=== PATIENT | female | born 1960 | race Two or more races ===

== ENCOUNTER 2018-09-01 22:16 | Inpatient (IN) | payer MEDICARE, OTHER ==
[~2018-09-01] VITALS: Ht 167.6 cm; Wt 64.0 kg
--- NOTE | 2018-09-01 22:30 | NUR ---
ADMITTED A 58 Y/O FROM [facility] ER, ON 5150 HOLD GD, BASED ON HOLD, PATIENT HOUSE FILLED WITH ROTTEN FOOD, PATIENT REFUSED TO EAT AND UNABLE TO FORMULATE PLAN FOR SELF CARE. PATIENT ADMITTING DX. DEPRESSION. UPON FACE TO FACE EVALUATION, PATIENT APPEARED ALERT AND ORIENTED X2-3, CALM, COOPERATIVE, FLAT AFFECT, DENIES SI/HI/AH/VH, PATIENT RESPONDING TO INTERNAL STIMULI, PATIENT HAS NO SOB, NO ACUTE DISTRESS, BREATHING EVEN AND UNLABORED, NO S/S OF PAIN AND DISCOMFORT, HEAD TO TOE ASSESSMENT DONE, SKIN INTACT, PATIENT SIGNED THE PAPER WORKS, NOTIFIED DR. AGRAWAL OF THE ADMISSION AND MANAGER POST MARYA TO RECONCILE THE MEDICATION. ALL NEEDS ATTENDED AND MET, WILL CONTINUE TO MONITOR [id number] FOR SAFETY
[2018-09-01] MEDS ORDERED: ACETAMINOPHEN 325 MG TABLET PO PRN (23:00)
[2018-09-01] MEDS ORDERED: MAG HYDROX/AL HYDROX/SIMETH 30 ML UDC PO PRN (23:00)
[2018-09-01] MEDS ORDERED: MAGNESIUM HYDROXIDE 30 ML UDC PO PRN (23:00)
[2018-09-01 23:39] VITALS: BP 125/87
[2018-09-02] MEDS: CEPHALEXIN MONOHYDRATE 500 MG CAPSULE PO SCH ×3 (00:44→20:52)
[2018-09-02] MEDS: TEMAZEPAM 15 MG CAPSULE PO PRN (00:45)
[2018-09-02 07:27] LABS: BASOPHILS % (AUTO) 0.3 % (0.0-2.0); EOSINOPHILS % (AUTO) 0.4 % (0.0-6.0); HEMATOCRIT 41 % (33-45); HEMOGLOBIN 13.7 g/dL (11.5-14.8); LYMPHOCYTES # (AUTO) 1.8 /CMM (0.8-4.8); LYMPHOCYTES % (AUTO) 26.6 % (20.0-44.0); MEAN CORPUSCULAR HGB CONC 33 g/dl (31.0-36.0); MEAN CORPUSCULAR VOLUME 90 fL (82-100); MONOCYTES # (AUTO) 0.6 /CMM (0.1-1.30); NEUTROPHILS # (AUTO) 4.4 /CMM (1.8-8.9); NEUTROPHILS % (AUTO) 63.7 % (43.0-81.0); PLATELET COUNT (AUTO) 177 /CMM (150-450); RED BLOOD CELL COUNT(AUTO) 4.59 MIL/uL (4.0-5.2); WHITE BLOOD COUNT (AUTO) 6.9 K/uL (4.3-11.0)
[2018-09-02 07:37] LABS: ALBUMIN 4.4 g/dL (3.4-5.0); BILIRUBIN,TOTAL 0.5 mg/dL (0.2-1.0); CALCIUM, SERUM 9.8 mg/dL (8.5-10.1); CREATININE 0.8 mg/dL (0.6-1.3); POTASSIUM 4.1 mmol/L (3.5-5.1)
[2018-09-02 08:00] VITALS: BP 142/87
[2018-09-02] MEDS: NICOTINE PATCH (14MG) 14 MG PATCH.TD24 TD SCH (09:04)
[2018-09-02] MEDS: risperiDONE 1 MG TABLET PO SCH (15:22)
[2018-09-02 16:00] VITALS: BP 148/99
[2018-09-02 20:00] VITALS: BP 141/99
[2018-09-03] MEDS: risperiDONE 1 MG TABLET PO SCH ×2 (03:22→20:37)
--- NOTE | 2018-09-03 06:31 | NUR ---
SODA FOUNTAIN OPERATOR CLOSING NOTES PT REMAINS SLEEP BUT AROUSE TO TOUCH, AND RESPONSIVE TO INTERNAL STIMULI .NO SIGNS OF ANY AGITATION NOTED, STABLE CHAIM THE NIGHT AND PT COMPLIANCE ON HER MEDICATION. ALL DUE MEDS GIVEN AND ALL NEEDS MET. KEPT HER WARM AND COMFORTABLE AT ALL TIMES. WILL ENDORSE TO AM NURSE FOR CONTINUITY OF CARE.
[2018-09-03 08:00] VITALS: BP 115/69
[2018-09-03] MEDS: CEPHALEXIN MONOHYDRATE 500 MG CAPSULE PO SCH ×2 (08:35→20:53)
[2018-09-03] MEDS: NICOTINE PATCH (14MG) 14 MG PATCH.TD24 TD SCH (08:36)
[2018-09-03] MEDS ORDERED: risperiDONE 1 MG TABLET PO SCH (13:31)
[2018-09-03 16:00] VITALS: BP 104/59
[2018-09-03 20:15] VITALS: BP 108/65
[2018-09-03] MEDS ORDERED: CEPHALEXIN MONOHYDRATE 500 MG CAPSULE PO ONE (20:51)
[2018-09-04 08:00] VITALS: BP 121/70
--- NOTE | 2018-09-04 09:34 | NUR ---
SW contacted the Crisis Team at [facility] Address: [address] [place] [address] and received pts Pathpoint case loader operatorland development manager and psychiatrist information.
[2018-09-04] MEDS: NICOTINE PATCH (14MG) 14 MG PATCH.TD24 TD SCH (09:37)
[2018-09-04] MEDS: CEPHALEXIN MONOHYDRATE 500 MG CAPSULE PO SCH ×2 (09:37→22:03)
[2018-09-04] MEDS: risperiDONE 1 MG TABLET PO SCH ×2 (09:38→22:04)
--- NOTE | 2018-09-04 09:40 | NUR ---
SW contacted Pts complex case manager Katalina Degroot at [facility] Address: [address] [place] [address], [place] [address] ex:[phone] and left voicemail for callback. Per hold, complex case manager took pt to [facility] ED. Information is limited on psychiatric hold.
--- NOTE | 2018-09-04 10:11 | NUR ---
INITIAL DISCHARGE PLAN: Pt may need placement, SW will coordinate discharge with [facility], Katalina Fernando, Adobe Cq Developer Address: [facility] [address] [address] [phone]. SW will help form a safe and proper discharge in collaboration with MD and Adobe Cq Developer.
--- NOTE | 2018-09-04 11:40 | NUR ---
SW received a phonen call from [facility], Katalina Fernando, Infection Control Rn Address: [address] [place] [address], [place] [address] [phone] stating pt is able to return home to her independent living but may need placement as pt is not compliant with her psychiatric treatment at home and has not been eating. Case manger agrees with local placement if needed. Pt has family but according to special education case manager they are elderly and unable to assist with pts care.
[2018-09-04 16:00] VITALS: BP 126/98
[2018-09-04 20:00] VITALS: BP 118/71
[2018-09-04] MEDS: LORAZEPAM 0.5 MG TABLET PO PRN (20:08)
[2018-09-05 08:00] VITALS: BP 132/63
[2018-09-05] MEDS: CEPHALEXIN MONOHYDRATE 500 MG CAPSULE PO SCH ×2 (08:25→21:15)
[2018-09-05] MEDS: NICOTINE PATCH (14MG) 14 MG PATCH.TD24 TD SCH ×2 (08:25→08:28)
[2018-09-05] MEDS: SERTRALINE HCL 50 MG TABLET PO SCH (08:26)
[2018-09-05] MEDS: risperiDONE 1 MG TABLET PO SCH ×2 (08:26→21:15)
--- NOTE | 2018-09-05 09:24 | NUR ---
JORGE received a phone call from pts mother Oj Pereira, who stated she was not aware pt was hospitalized. JORGE informed her that she had spoken with pts Pathpoint case maker who stated pts family was not involved with pts care. Mother stated that she was not aware how bad pt was until she found out she was hospitalized. SW explained why pt was placed on a hold and also explained hospitalization process. Pts mother understood. JORGE will continue to update pts mother and also informed her that she is able to contact pt and contact the nurses station for updates. JORGE also informed her that the discharge plan is for pt to return home once stable via [facility] transport but if Psychiatrist feels pt needs SNF placement, JORGE would notify her.
[2018-09-05 16:00] VITALS: BP 145/95
--- NOTE | 2018-09-05 18:05 | NUR ---
RN NOTES VSS STABLE, PT AT REST , NO SIGNIFICANT CHANGES NOTED ON THIS SHIFT, WILL ENDOSE TO COMMISSIONER CONSERVATION OF RESOURCES NURSE FOR CONTINUITY OF CARE
[2018-09-05 20:43] VITALS: BP_SYST 122; BP_SYST 151; BP_DIAS 68; BP_DIAS 95
[2018-09-05] MEDS: TEMAZEPAM 15 MG CAPSULE PO PRN (22:12)
[2018-09-05 22:30] VITALS: BP 132/70
[2018-09-06] MEDS: LORAZEPAM 0.5 MG TABLET PO PRN ×2 (02:38→20:05)
[2018-09-06 08:00] VITALS: BP 153/96
[2018-09-06] MEDS: CEPHALEXIN MONOHYDRATE 500 MG CAPSULE PO SCH ×2 (08:19→21:11)
[2018-09-06] MEDS: NICOTINE PATCH (14MG) 14 MG PATCH.TD24 TD SCH (08:19)
[2018-09-06] MEDS: risperiDONE 1 MG TABLET PO SCH ×2 (08:19→21:11)
[2018-09-06] MEDS: SERTRALINE HCL 50 MG TABLET PO SCH (08:19)
--- NOTE | 2018-09-06 15:34 | NUR ---
Group Note: Pt attended a group session on 09/06/18 at 11AM discussing the topic of what gives them meaning in their lives and what they are looking forward to once they get discharged from the hospital. 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 I want to go back to my job when I am discharged so that I can have something to do with my life. O: Pt was present during the group session and was cooperative. Pt appeared to be in a euthymic mood and presented with a calm affect. Pt appeared to be comfortable and spoke openly about her life. A: Pt understood that she is in this situation because she was not appropriately taking care of herself and must tend to that after she discharges from the hospital so that she does not return. P: Pt will continue milieu treatment and medication stabilization.
[2018-09-06 16:00] VITALS: BP 151/83
[2018-09-06 19:56] VITALS: BP 150/89
--- NOTE | 2018-09-06 20:06 | NUR ---
GPS RN NOTES: PT.C/O ANXIOUS YELLING SCREAMING , NOT FOLLOWING ANY REDIRECTIONS ATIVAN 1 MG MG PO PRN GIVEN , WILL CONTINUE TO MONITOR.
[2018-09-07] MEDS: TEMAZEPAM 15 MG CAPSULE PO PRN ×2 (00:05→23:28)
[2018-09-07 08:00] VITALS: BP 137/88
[2018-09-07] MEDS: risperiDONE 1 MG TABLET PO SCH (08:43)
[2018-09-07] MEDS: NICOTINE PATCH (14MG) 14 MG PATCH.TD24 TD SCH (08:44)
[2018-09-07] MEDS: SERTRALINE HCL 50 MG TABLET PO SCH (08:44)
[2018-09-07] MEDS: CEPHALEXIN MONOHYDRATE 500 MG CAPSULE PO SCH ×2 (08:44→20:24)
[2018-09-07 16:00] VITALS: BP 142/77
[2018-09-07 20:00] VITALS: BP 114/71
[2018-09-07] MEDS: QUETIAPINE FUMARATE 25 MG TABLET PO SCH (20:24)
[2018-09-08 08:00] VITALS: BP 145/90
[2018-09-08] MEDS: CEPHALEXIN MONOHYDRATE 500 MG CAPSULE PO SCH ×2 (08:54→21:10)
[2018-09-08] MEDS: SERTRALINE HCL 50 MG TABLET PO SCH (08:54)
[2018-09-08] MEDS: NICOTINE PATCH (14MG) 14 MG PATCH.TD24 TD SCH (08:55)
[2018-09-08] MEDS: QUETIAPINE FUMARATE 25 MG TABLET PO SCH (08:55)
--- NOTE | 2018-09-08 10:21 | NUR ---
JORGE contacted Pts social work case manager Katalina Degroot at [facility] Address: [address] [place] [address] ex:[phone] and left voicemail informing her pt has a discharge date for Wednesday September 12, 2018. JORGE requested transportation coordination.
--- NOTE | 2018-09-08 10:23 | NUR ---
JORGE contacted Marcelina Herrera [phone] with [facility] Department of Behavioral Wellness and left voicemail requesting coordination with transportation for Wednesday September 12, 2018.
--- NOTE | 2018-09-08 10:27 | NUR ---
JORGE contacted pts mother Oj Pereira, and left a voicemail informing her pt has a discharge date for Wednesday September 12, 2018.
--- NOTE | 2018-09-08 12:28 | NUR ---
JORGE contacted [place] [phone] [facility] liaison with [facility] and left voicemail requesting transportation for pt discharging on Wednesday September 12, 2018.
[2018-09-08 16:00] VITALS: BP 129/89
[2018-09-08 20:00] VITALS: BP 159/100
[2018-09-08] MEDS: QUETIAPINE FUMARATE 100 MG TABLET PO SCH (21:09)
[2018-09-08] MEDS: clonazePAM 0.5 MG TABLET PO SCH (21:10)
[2018-09-09 08:00] VITALS: BP 107/81
[2018-09-09] MEDS: NICOTINE PATCH (14MG) 14 MG PATCH.TD24 TD SCH (08:57)
[2018-09-09] MEDS: SERTRALINE HCL 50 MG TABLET PO SCH (08:57)
[2018-09-09] MEDS: QUETIAPINE FUMARATE 25 MG TABLET PO SCH (08:58)
[2018-09-09 16:00] VITALS: BP 122/86
[2018-09-09 20:00] VITALS: BP 112/74
[2018-09-09] MEDS: QUETIAPINE FUMARATE 100 MG TABLET PO SCH (21:00)
[2018-09-09] MEDS: clonazePAM 0.5 MG TABLET PO SCH (21:00)
--- NOTE | 2018-09-10 00:30 | NUR ---
GPS RN NOTES PT SLEEPING. EASILY AROUSABLE. NOT IN ANY DISTRESS. NO SOB NOTED. NO S/SX OF ANY PAIN OR DISCOMFORT AT THIS TIME. WILL CONTINUE TO MONITOR FOR BEHAVIOR AND SAFETY.
[2018-09-10 08:00] VITALS: BP 139/70
[2018-09-10] MEDS: NICOTINE PATCH (14MG) 14 MG PATCH.TD24 TD SCH (08:33)
[2018-09-10] MEDS: QUETIAPINE FUMARATE 25 MG TABLET PO SCH (08:33)
[2018-09-10] MEDS: SERTRALINE HCL 50 MG TABLET PO SCH (08:33)
[2018-09-10 16:00] VITALS: BP 123/78
[2018-09-10 20:00] VITALS: BP 117/79
[2018-09-10] MEDS: QUETIAPINE FUMARATE 100 MG TABLET PO SCH (21:55)
[2018-09-10] MEDS: clonazePAM 0.5 MG TABLET PO SCH (21:55)
[2018-09-11 08:00] VITALS: BP 124/80
[2018-09-11] MEDS: SERTRALINE HCL 50 MG TABLET PO SCH (08:40)
[2018-09-11] MEDS: NICOTINE PATCH (14MG) 14 MG PATCH.TD24 TD SCH (08:41)
[2018-09-11] MEDS: QUETIAPINE FUMARATE 25 MG TABLET PO SCH (08:41)
--- NOTE | 2018-09-11 13:11 | NUR ---
JORGE spoke with Zeny [phone] [facility] liaison with [facility] regarding transportation for pt. Zeny stated she would contact JORGE once she arrived to her office.
--- NOTE | 2018-09-11 14:49 | NUR ---
JORGE spoke with Zeny [phone] hospital liaison with [facility] regarding transportation for pt. Zeny stated she needs to request approval by her supervisor major appliance assembly as pt was placed on a hold at [facility] and not by their crisis team. JORGE informed her that intake received a letter stating [facility] would arrange transportation once stable for discharge. Zeny stated that she was not sure how intake received that letter as they are not responsible for transportation for pts placed on holds at [facility]. Zeny stated she would contact JORGE with an update by the end of today. JORGE also informed [facility] intake department.
--- NOTE | 2018-09-11 15:35 | NUR ---
SW received a call from [place] [phone] [facility] liaison with [facility] regarding transportation for pt and stated transportation was approved for Tuesday09/13/18 at 11:30am.
--- NOTE | 2018-09-11 15:37 | NUR ---
SW contacted Pts returned case inspector Katalina Degroot at [facility] Address: [address] [place] [address], [place] [address] ex:[phone] and left voicemail informing her pt has a discharge date for Thursday September 13, 2018 and transportation had been arranged by [facility].
[2018-09-11 16:00] VITALS: BP 134/84
[2018-09-11 20:13] VITALS: BP 129/77
[2018-09-11] MEDS: QUETIAPINE FUMARATE 100 MG TABLET PO SCH (21:10)
[2018-09-11] MEDS: clonazePAM 0.5 MG TABLET PO SCH (21:11)
[2018-09-11] MEDS: TEMAZEPAM 15 MG CAPSULE PO PRN (23:09)
[2018-09-12 08:00] VITALS: BP 129/86
[2018-09-12] MEDS: NICOTINE PATCH (14MG) 14 MG PATCH.TD24 TD SCH (09:14)
[2018-09-12] MEDS: SERTRALINE HCL 50 MG TABLET PO SCH (09:14)
[2018-09-12] MEDS: QUETIAPINE FUMARATE 25 MG TABLET PO SCH (09:14)
--- NOTE | 2018-09-12 15:38 | NUR ---
JORGE faxed clinical information to Pts pillowcase sewer Katalina Degroot at [facility] Address: [address] [place] [phone] ex:[phone] .
[2018-09-12 16:00] VITALS: BP 133/71
[2018-09-12 20:00] VITALS: BP 135/79
[2018-09-12 20:34] VITALS: BP 135/79
[2018-09-12] MEDS: clonazePAM 0.5 MG TABLET PO SCH (21:28)
[2018-09-12] MEDS: QUETIAPINE FUMARATE 100 MG TABLET PO SCH (21:29)
[2018-09-13 08:00] VITALS: BP 144/84
[2018-09-13] MEDS: LORAZEPAM 0.5 MG TABLET PO PRN (10:19)
[2018-09-13] MEDS: SERTRALINE HCL 50 MG TABLET PO SCH (10:20)
[2018-09-13] MEDS: QUETIAPINE FUMARATE 25 MG TABLET PO SCH (10:20)
[2018-09-13] MEDS: NICOTINE PATCH (14MG) 14 MG PATCH.TD24 TD SCH (10:20)
--- NOTE | 2018-09-13 12:14 | NUR ---
DISCHARGE NOTE: Pt was discharged at 11:30am via [facility] Transportation home to [address] [facility] [address], [place] [address]. Pts mother Oj Pereira, and Film Producer at [facility] Katalina [phone] [phone] have been notified. Pt has a follow up appointment with Psychiatrist: Dr. Fox Pedroza [address] [facility] [address], [place] [address] [phone] on 10/05/18 at 9:00am and an appointment with her caser shoe parts Katalina on 09/14/18 at 10:00am who will visit her at home. also faxed clinical information to Pts caser shoe parts Katalina Degroot at [facility] Address: [facility] [address] [place] [address], [place] [address] ex:[phone] . Pt was provided with a referral to [facility] Address: [address] [place] [phone] . The multidisciplinary exitcare form was done, printed, signed, and given to the patient. Addendum: 09/14/18 at 1342 by DENI PATEL Pts mood appeared euthymic with congruent affect. Pt denied visual/auditory hallucinations and denied suicidal/homicidal ideations.
== END 2018-09-13 11:45 | disposition home or self-care (01) | DRG 881 ==
LOC: GPS 22:16
PROVIDERS: ADMIT Psychiatry & Neurology Psychiatry; ATTEND Psychiatry & Neurology Psychiatry
DX: F32.9 Major depressive disorder, single episode, unspecified (principal); N39.0 Urinary tract infection, site not specified; F29 Unspecified psychosis not due to a substance or known physiological condition; R62.7 Adult failure to thrive; E87.6 Hypokalemia; F41.9 Anxiety disorder, unspecified; Z73.6 Limitation of activities due to disability; Z72.0 Tobacco use; B96.89 Other specified bacterial agents as the cause of diseases classified elsewhere
CPT/HCPCS: 36415; 80053-TC; 80061-TC; 85025-TC; 87081-TC

== ENCOUNTER 2018-11-14 21:03 | Inpatient (IN) | payer MEDICARE, OTHER ==
[~2018-11-14] VITALS: Ht 167.6 cm; Wt 59.0 kg
[2018-11-14 22:30] VITALS: BP 148/95
[2018-11-14] MEDS ORDERED: MAGNESIUM HYDROXIDE 30 ML UDC PO PRN (23:30)
[2018-11-14] MEDS ORDERED: MAG HYDROX/AL HYDROX/SIMETH 30 ML UDC PO PRN (23:30)
[2018-11-14] MEDS ORDERED: ACETAMINOPHEN 325 MG TABLET PO PRN (23:30)
[2018-11-14] MEDS ORDERED: QUET100T PO (23:39)
[2018-11-14] MEDS ORDERED: QUET25TA PO (23:39)
[2018-11-14] MEDS ORDERED: SERT50TA12 PO (23:39)
[2018-11-14] MEDS ORDERED: LURA60TA PO (23:39)
--- NOTE | 2018-11-15 00:39 | NUR ---
GPS-CHEMICAL LABORATORY TECHNICIAN NOTES: ADMITTED A 58 YR-OLD, FEMALE, DIRECT ADMIT FROM [facility]. ADMITTED ON 5150 FOR GD. PER HOLD, PATIENT HAS NOT BEEN EATING OR DRINKING FOR OVER A WEEK. UPON FACE TO FACE ASSESSMENT, PATIENT IS ALERT, ORIENTED X2, CALM, COOPERATIVE WITH CARE, DEPRESSED MOOD, QUIET, AMBULATES INDEPENDENTLY. DENIES SI/HI OR HALLUCINATIONS AT THIS TIME. IN NO APPARENT DISTRESS NOTED. NO C/O PAIN OR DISCOMFORT AT THIS TIME. BELONGINGS WERE INVENTORIED AND CHECKED FOR CONTRABAND. PT. IS UNDER THE PSYCHIATRIC CARE OF DR. AGARWAL ORDERS OBTAINED, AND UNDER THE MEDICAL CARE OF INDER MALHOTRA NOTIFIED OF THE ADMISSION AND MEDICATION TO RECONCILE. SKIN IS CLEAR AND INTACT. BED LOCKED AND PLACED ON LOWEST POSITION TO MAINTAIN SAFETY. FALL PRECAUTIONS IMPLEMENTED. WILL CONTINUE TO MONITOR Q15 MINS. FOR SAFETY AND BEHAVIOR. Addendum: 11/15/18 at 0046 by ANNELISE CLINTON RN PATIENT CAME IN AROUND [id number]
[2018-11-15 08:00] VITALS: BP 129/88
[2018-11-15 16:03] VITALS: BP 129/86
[2018-11-15 18:16] LABS: BILIRUBIN,TOTAL 0.5 mg/dL (0.2-1.0); CALCIUM, SERUM 9.6 mg/dL (8.5-10.1); POTASSIUM 3.2 mmol/L (3.5-5.1); TOTAL PROTEIN, SERUM 6.8 g/dL (6.4-8.2)
[2018-11-15 18:21] LABS: CHOLESTEROL 201 mg/dL (<200); HDL CHOLESTEROL 45 mg/dL (40-60); LDL 134 mg/dL (0-99); TRIGLYCERIDES 101 mg/dL (30-150)
[2018-11-15 20:03] VITALS: BP 126/77
[2018-11-15] MEDS ORDERED: POTASSIUM CHLORIDE 20 MEQ TAB.PRT.SR PO ONE (20:30)
[2018-11-15] MEDS: TEMAZEPAM 7.5 MG CAPSULE PO PRN (20:49)
[2018-11-15] MEDS: LITHIUM CARBONATE (300 MG CAP) 300 MG CAPSULE PO SCH (21:00)
[2018-11-15] MEDS: MIRTAZAPINE 15 MG TABLET PO SCH (21:02)
[2018-11-16 08:00] VITALS: BP 118/73
[2018-11-16] MEDS: LITHIUM CARBONATE (300 MG CAP) 300 MG CAPSULE PO SCH ×2 (08:16→21:33)
--- NOTE | 2018-11-16 10:30 | NUR ---
JORGE contacted pts mother Oj Pereira, [phone], SW was unable to leave voicemail. JORGE will call back at a later time.
--- NOTE | 2018-11-16 10:50 | NUR ---
INITIAL DISCHARGE NOTE: Pt may need placement, SW will coordinate discharge with [facility], Katalina Fernando, Director Biology Address: [facility] [address] [address], [place] [address] [phone]. SW will help form a safe and proper discharge in collaboration with MD and Director Biology.
--- NOTE | 2018-11-16 10:52 | NUR ---
SW contacted [facility], Katalina Fernando, Surveillance Systems Analyst Address: [address] [place] [phone] and left voicemail for call back.
--- NOTE | 2018-11-16 16:40 | NUR ---
GPS/RN-NOTES PATIENT REFUSED LAB DRAW TODAY DESPITE FEW ATTEMPT BY THE LAB STAFF. EXPLAINED RISK AND BENEFITS BUT PATIENT STATED" I HAVE THE RIGHT TO REFUSED".
--- NOTE | 2018-11-16 19:30 | NUR ---
GPS RN NOTE, RECEIVED PATIENT AWAKE AND IN ROOM NO S/S OR COMPLAINTS OF PAIN AT THIS TIME. PATIENT IS DISPLAYING NO S/S OF APPARENT DISTRESS AT THIS TIME. PATIENT BREATHING IS UNLABORED WITH EQUAL RISE AND FALL OF THE CHEST. PATIENT IS ALERT AND ORIENTED X 2-3 ON ROOM AIR WITH A SPO2 OF 97%. PATIENT IS MED COMPLIANT, ISOLATIVE, DISORGANIZED, DEPRESSED, COOPERATIVE, AND NEEDS REORIENTATION. PATIENT DENIES SUICIDE AND HOMICIDAL IDEATIONS AT THIS TIME. PATIENT ASSISTED WITH TURNING AND REPOSITIONING Q2HR AND PRN FOR COMFORT AND CIRCULATION. PATIENT HAS NO NEEDS AT THIS TIME. PATIENT EDUCATED ON THE USE OF THE CALL THOMAS. PATIENT BED SIDE RAILS ARE UP X 2 FOR SAFETY, BED IS LOCKED AND LOW. WILL CONTINUE TO MONITOR AND MAINTAIN SAFETY Q15 MIN WITH THE HELP OF STAFF.
[2018-11-16 20:00] VITALS: BP 126/85
[2018-11-16] MEDS ORDERED: risperiDONE 0.25 MG TABLET PO SCH (21:00)
[2018-11-16] MEDS: risperiDONE 0.25 MG TABLET PO SCH (21:33)
[2018-11-16] MEDS: MIRTAZAPINE 15 MG TABLET PO SCH (21:34)
[2018-11-17 08:00] VITALS: BP 128/88
[2018-11-17] MEDS: LITHIUM CARBONATE (300 MG CAP) 300 MG CAPSULE PO SCH ×2 (08:18→21:17)
[2018-11-17] MEDS: risperiDONE 0.25 MG TABLET PO SCH ×2 (08:18→21:17)
--- NOTE | 2018-11-17 15:17 | NUR ---
SUPPORTIVE COUNSELING: SW ATTEMPTED TO ENCOURAGE PT TO SHOWER, PT STATED, "IM FINE." AND DID NOT RESPOND TO SW THEREAFTER.
[2018-11-17 16:00] VITALS: BP 118/66
--- NOTE | 2018-11-17 18:52 | NUR ---
RN NOTE: PATIENT REMAINS ALERT AWAKE, ISOLATIVE, DEPRESSED MOOD. ON ROOM AIR, NO BREATHING DISTRESS NOTED. DENIES PAIN/DISCOMFORT. ENCOURAGE TO COME OUT FROM ROOM TO JOIN GROUP ACTIVITIES, PT REFUSED. ABLE TO CONSUME 25% MEAL WITH ENCOURAGEMENT. SAFETY MEASURES OBSERVED. CONTINUE WITH PLAN OF CARE.
[2018-11-17 20:00] VITALS: BP 103/63
[2018-11-17] MEDS: MIRTAZAPINE 15 MG TABLET PO SCH (21:32)
[2018-11-18 08:00] VITALS: BP 127/93
[2018-11-18] MEDS: LITHIUM CARBONATE (300 MG CAP) 300 MG CAPSULE PO SCH ×2 (10:07→21:06)
[2018-11-18] MEDS: risperiDONE 0.25 MG TABLET PO SCH ×2 (10:07→21:06)
[2018-11-18 16:00] VITALS: BP 115/61
--- NOTE | 2018-11-18 18:00 | NUR ---
seems depressed,in bed sleeping all day.med compliant.
[2018-11-18 20:00] VITALS: BP 104/58
[2018-11-18] MEDS: MIRTAZAPINE 15 MG TABLET PO SCH (21:07)
[2018-11-19 08:00] VITALS: BP 111/68
[2018-11-19] MEDS: risperiDONE 0.25 MG TABLET PO SCH ×2 (09:13→21:21)
[2018-11-19] MEDS: LITHIUM CARBONATE (300 MG CAP) 300 MG CAPSULE PO SCH ×2 (09:13→21:21)
[2018-11-19 16:00] VITALS: BP 104/63
[2018-11-19 20:00] VITALS: BP 110/65
[2018-11-19] MEDS: MIRTAZAPINE 15 MG TABLET PO SCH (21:22)
[2018-11-20 08:00] VITALS: BP 107/62
[2018-11-20] MEDS: risperiDONE 0.25 MG TABLET PO SCH ×2 (09:06→21:04)
[2018-11-20] MEDS: LITHIUM CARBONATE (300 MG CAP) 300 MG CAPSULE PO SCH ×2 (09:06→21:04)
--- NOTE | 2018-11-20 12:37 | NUR ---
SW contacted [facility], Katalina Fernando, Principal Administrative Clerk Address: [address] [place] [phone] and left voicemail for call back.
--- NOTE | 2018-11-20 13:14 | NUR ---
SW received a call from [facility], Katalina Fernando, Packing And Final Assembly Supervisor Address: [address] [place] [address], [place] [address] [phone] stating pt needs SNF placement as pt cannot return home as she is unable to care for herself and also refuses help. Katalina asked SW to completed physicians report for longterm placement at a board and care once discharged from SNF. JORGE provided her with fax number and stated she would complete forms for future meterman placement.
[2018-11-20 16:00] VITALS: BP 137/90
[2018-11-20 20:03] VITALS: BP 145/88
[2018-11-20] MEDS: MIRTAZAPINE 15 MG TABLET PO SCH (22:08)
[2018-11-20] MEDS: LORAZEPAM 0.5 MG TABLET PO PRN (23:35)
--- NOTE | 2018-11-20 23:37 | NUR ---
GPS RN NOTES : PT. C/O FEELING ANXIOUS PACING IN HALLWAY , PACING IN HER ROOM,RESTLESS, ATIVAN 0.5 MG PO PRN GIVEN PER PT. REQUEST , WILL CONTINUE TO MONITOR.
[2018-11-21] MEDS: TEMAZEPAM 7.5 MG CAPSULE PO PRN ×2 (01:35→22:28)
[2018-11-21 08:00] VITALS: BP 147/90
[2018-11-21] MEDS: LITHIUM CARBONATE (300 MG CAP) 300 MG CAPSULE PO SCH ×2 (09:23→21:08)
[2018-11-21] MEDS: risperiDONE 0.25 MG TABLET PO SCH ×2 (09:23→21:08)
--- NOTE | 2018-11-21 12:28 | NUR ---
SNF REFERRAL: SW faxed SNF referral to Allison, aboriginal education worker coordinator at [facility] [address], [place] [address] for review.
--- NOTE | 2018-11-21 12:29 | NUR ---
SNF REFERRAL: SW received a call from Allison transport coordinator at [facility] [address], [place] [address] stating pt has been accepted to the facility.
[2018-11-21 16:00] VITALS: BP 147/83
--- NOTE | 2018-11-21 18:00 | NUR ---
UP AND ABOUT,PACING IN HALLS,NO DISTRESS.
[2018-11-21] MEDS: LORAZEPAM 0.5 MG TABLET PO PRN (20:01)
--- NOTE | 2018-11-21 20:02 | NUR ---
GPS RN NOTES: PT. C/O FEELING ANXIOUS PACING IN HALLWAY , PACING IN HER ROOM,RESTLESS, ATIVAN 0.5 MG PO PRN GIVEN PER PT. REQUEST , WILL CONTINUE TO MONITOR.
[2018-11-21 20:20] VITALS: BP 126/88
[2018-11-21] MEDS: MIRTAZAPINE 15 MG TABLET PO SCH (21:19)
[2018-11-22 07:11] LABS: CALCIUM, SERUM 9.9 mg/dL (8.5-10.1); CREATININE 0.9 mg/dL (0.6-1.3); POTASSIUM 3.4 mmol/L (3.5-5.1)
[2018-11-22 08:00] VITALS: BP 141/97
[2018-11-22] MEDS: LITHIUM CARBONATE (300 MG CAP) 300 MG CAPSULE PO SCH ×2 (09:59→21:15)
[2018-11-22] MEDS: risperiDONE 0.25 MG TABLET PO SCH ×2 (09:59→21:15)
[2018-11-22] MEDS ORDERED: POTASSIUM CHLORIDE 20 MEQ TAB.PRT.SR PO SCH (11:00)
--- NOTE | 2018-11-22 13:43 | NUR ---
SW contacted [facility], Katalina Fernando, Rug Dry Room Attendant Address: [address] [place] [phone] and left voicemail for call back.
[2018-11-22] MEDS ORDERED: TEMAZEPAM 7.5 MG CAPSULE PO PRN (14:30)
--- NOTE | 2018-11-22 14:33 | NUR ---
SW faxed physicians report to Pts rn case manager hospice Katalina Degroot at [facility] Address: [address] [place] [address], [place] [address] [phone] .
[2018-11-22 16:00] VITALS: BP 149/74
--- NOTE | 2018-11-22 16:28 | NUR ---
dr. boone psychiatrist in and made aware pt. not sleeping last 2 nights.
[2018-11-22 20:52] VITALS: BP 120/74
[2018-11-22] MEDS ORDERED: MIRTAZAPINE 15 MG TABLET PO SCH (22:00)
[2018-11-23 08:00] VITALS: BP 114/76
[2018-11-23 08:06] LABS: CALCIUM, SERUM 9.5 mg/dL (8.5-10.1); CREATININE 0.7 mg/dL (0.6-1.3); POTASSIUM 3.4 mmol/L (3.5-5.1)
[2018-11-23] MEDS: risperiDONE 0.25 MG TABLET PO SCH (08:17)
[2018-11-23] MEDS: LITHIUM CARBONATE (300 MG CAP) 300 MG CAPSULE PO SCH (08:17)
--- NOTE | 2018-11-23 09:56 | NUR ---
DISCHARGE NOTE: Pt being discharged at 10:00am to [facility] ([facility] [address] [place] [address] via facility private transportation. Pts registered nurse hh case manager Katalina has been notified and a copy fo her clinical information has been faxed to her. Pts mood appears euthymic with congruent affect. Pt denied visual/auditory hallucinations and suicidal/homicidal ideation. Pt will be under the care of Roll Forming Machine Set Up Mechanic: Dr. Dameon Conti [address] [facility] [address], [place] [id number] [phone] Psychiatrist: Dr. Joanne Mandujano [address] [place] [address] [address], [place] [id number] [phone]. The multidisciplinary exitcare form was done, printed, signed, and given to the patient.
[2018-11-23] MEDS ORDERED: POTASSIUM CHLORIDE 20 MEQ TAB.PRT.SR PO SCH (10:00)
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
[2018-11-23] MEDS ORDERED: MIRTAZAPINE 15 MG TABLET PO SCH (22:00)
== END 2018-11-23 10:50 | DRG 885 ==
LOC: GPS 21:03
PROVIDERS: ADMIT Psychiatry & Neurology Psychiatry; ATTEND Nurse Practitioner Acute Care
DX: F25.9 Schizoaffective disorder, unspecified (principal); F29 Unspecified psychosis not due to a substance or known physiological condition; F41.9 Anxiety disorder, unspecified; Z73.6 Limitation of activities due to disability; E87.6 Hypokalemia; E78.5 Hyperlipidemia, unspecified; R74.0 Nonspecific elevation of levels of transaminase and lactic acid dehydrogenase [LDH]; G47.00 Insomnia, unspecified
CPT/HCPCS: 36415; 71045-TC; 80048-TC; 80053-TC; 80061-TC; 87081-TC